=== PATIENT | female | born 1965 | race Caucasian/White ===

== ENCOUNTER 2024-12-13 15:52 | Emergency (ER) | payer MEDICAID ==
[~2024-12-13] VITALS: Ht 152.4 cm; Wt 79.5 kg
[2024-12-13] MEDS ORDERED: TRAZ-257 PO (16:19)
[2024-12-13] MEDS ORDERED: HYDR12.54 PO (16:19)
[2024-12-13] MEDS ORDERED: ALBU18HF12 IH (16:19)
[2024-12-13] MEDS ORDERED: LORA2TAB18 PO (16:19)
[2024-12-13] MEDS ORDERED: VANC125C19 PO (16:19)
[2024-12-13] MEDS ORDERED: ATEN-72 PO (16:19)
[2024-12-13] MEDS: CEPHALEXIN MONOHYDRATE 500 MG CAPSULE PO ONE (17:51)
[2024-12-13] MEDS ORDERED: CEPH-558 PO (18:06)
[2024-12-13 18:17] VITALS: BP 121/73; PULSE 70; RESP 18; TEMP 98.2; O2SAT 99
== END 2024-12-13 18:29 | disposition home or self-care (01) ==
LOC: EMS 16:08
DX: L03.211 Cellulitis of face (principal); F41.9 Anxiety disorder, unspecified; I10 Essential (primary) hypertension; J45.909 Unspecified asthma, uncomplicated; Z88.2 Allergy status to sulfonamides; Z79.899 Other long term (current) drug therapy
CPT/HCPCS: 99283